=== PATIENT | male | born 1935 | race Caucasian/White ===

== ENCOUNTER → 2021-06-16 | Outpatient (CLI) | payer MEDICARE, BC, SELFPAY ==
--- NOTE | 2021-06-16 06:13 | CT_ITS ---
INDICATION: MID ABDOMINAL HYPOECHOIC MASS FOUND IN US EXAMINATION: CT ABDOMEN AND PELVIS WITH CONTRAST - CT Abdomen And Pelvis W/ Contrast Injection TECHNIQUE: Helically acquired images were obtained of the abdomen and pelvis following IV contrast. A radiation dose optimization technique was used for this scan. IV Contrast dosage and agent: 100 mL of OMNIPAQUE 300. Oral contrast: None. COMPARISON: None. FINDINGS: LOWER CHEST: Lung bases are clear. No cardiomegaly or pericardial effusion. LIVER: Homogeneous. No focal mass. GALLBLADDER AND BILIARY TREE: No calcified gallstones. No gallbladder distension or wall edema. No intra- or extrahepatic biliary ductal dilation. PANCREAS: No focal cystic or solid mass. SPLEEN: Normal size without focal cystic or solid mass. ADRENAL GLANDS: No nodules. KIDNEYS AND URETERS: Multiple cysts cysts visualized in bilateral kidneys, bilateral parapelvic cysts are visualized, cortical atrophy visualized most prominent in the right kidney. Areas of moderate hydroureter visualized most prominent in the distal ureters. PERITONEUM: No ascites or free air. No other fluid collection. BOWEL: Small type I hiatus hernia is seen. A 2 cm area of low attenuation that could represent a duplication cyst visualized along the second portion of the duodenum. No evidence of acute appendicitis. No stomach or bowel distension. No focal inflammatory change. Abundance of stool in the large bowel. LYMPH NODES: Bilateral inguinal lymph nodes visualized. VESSELS: Atherosclerotic calcifications visualized in the abdominal aorta and pelvic vessels. URINARY BLADDER: Markedly distended urinary bladder with mild irregularity of the wall but no evidence of wall masses. Prominence of the prostatic urethra visualized, increased heterogeneous attenuation of the prostate gland visualized with a focal area of low attenuation visualized along the right lateral aspect of the prostate gland best visualized on axial series 2 image 115. REPRODUCTIVE ORGANS: No pelvic masses. ABDOMINAL WALL: No discrete abdominal or pelvic wall hernia. BONES: No lytic or blastic abnormality. CT/Abdomen/Pelvis WITH Contrast IMPRESSION: Obstructive uropathy with markedly distended urinary bladder and bilateral hydroureter. Prominence of the prostatic urethra is visualized with heterogeneous attenuation of the prostate gland and suggestion of a low-attenuation mass in the prostate gland would recommend urological consultation. Small type I hiatus hernia. 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 Bilateral inguinal lymph nodes seen. Electronically Signed: Trino Alcantar MD at 10:23 EDT ,
[2021-06-16 08:26] LABS: CREATININE FINGERSTICK 1.5 mg/dL (0.70-1.30)
== END | disposition home or self-care (01) ==
PROVIDERS: PCP Nurse Practitioner Family; Referring Provider Nurse Practitioner Family; Visit Provider Nurse Practitioner Family
DX: R19.00 Intra-abdominal and pelvic swelling, mass and lump, unspecified site (principal); E11.9 Type 2 diabetes mellitus without complications; I10 Essential (primary) hypertension
CPT/HCPCS: 74177; Q9967

== ENCOUNTER 2021-09-18 12:07 | Emergency (ER) | payer MEDICARE, BC, SELFPAY ==
[2021-09-18 12:07] VITALS: BP 124/63; PULSE 70; RESP 14; TEMP 36.3; O2SAT 97; BMI 25.0
--- NOTE | 2021-09-18 12:42 | EDS_ITS ---
HPI History of Present Illness Chief Complaint: Complaint Informant: patient Pain Onset: Today Context: Gradual Onset Timing: Continuous Worsened by: Nothing Relieved by: Nothing Urinary Symptoms Genitourinary Symptoms: Urgency, Frequency, Retention, Burning, Dysuria and Hematuria Narrative Narrative: Patient presents with urinary retention that began today. Patient states he has been only able to urinate very small amounts today. Patient admits to urinary frequency. Patient admits to urgency. Patient states he did notice some blood with urination. Patient also admits to some burning with urination. Patient denies any fevers or chills. Patient states nothing makes it better nothing makes it worse. Patient denies any nausea or vomiting. Patient denies any back pain. Patient denies any flank pain. PFSH PFS Medical History (Updated 09/18/21 @ 14:[address] Kobe Lerma DO) Coronary artery disease Psoriasis Allergy/AdvReac Type Severity Reaction Status Date / Time prednisone Allergy Swelling Verified 09/18/21 12:09 Surgical History (Updated 09/18/21 @ 12:[address] Kobe Lerma DO) Hx of heart artery stent Social History Smoking Status: Unknown if ever smoked ROS ROS ED Constitutional Constitutional ED: Denies chills or fever(s) Eyes Eyes: Denies blurry vision or change in vision ENT ENT ED: Reports rhinorrhea; Denies sore throat Cardiovascular Cardiovascular: Denies chest pain or palpitations Respiratory/Chest Respiratory/Chest: Denies cough or dyspnea Gastrointestinal Gastrointestinal: Denies nausea or vomiting Genitourinary Genitourinary ED: Reports dysuria, hematuria and urinary frequency Musculoskeletal Musculoskeletal: Denies back pain or neck pain Integumentary Reports rash; Denies abscess Neurologic Neurologic: Denies headache(s) or weakness Allergic/Immunologic Allergic/Immunologic ED: Denies mouth swelling or urticaria EXAM Physical Exam Const Vital Signs: 09/18/21 12:07 Temperature 97.3 F L Temperature Source Temporal Pulse Rate 70 Respiratory Rate 14 Blood Pressure 124/63 H Blood Pressure Mean 83 Pulse Ox 97 Oxygen Delivery Method Room Air Positive well nourished and well developed General Appearance ED: well developed and NAD HEENT Reports moist mucous membranes Neck supple and no JVD Resp normal respiratory effort and clear to auscultation bilaterally Cardio regular rate, regular rhythm and no murmurs GI normal to inspection, nondistended, normoactive bowel sounds GI Narrative: The bladder is distended Palpation: soft and tender suprapubic; Negative for guarding no CVA tenderness Bladder / Kidney Exam: No CVA tenderness Extremity normal to inspection General Extremety ED: Negative for edema or tenderness General Extremity: Negative for edema Neuro oriented x3, CN's II-XII intact bilaterally and no sensory deficits noted Sensorium / Orientation: alert Motor Exam: strength 5/5 throughout Psych mental status grossly normal Skin no rashes or lesions noted MDM MDM MDM Narrative Medical decision making narrative: Black catheter was placed. There is red turbid urine. Occult blood was 250. There were greater than 100 red blood cells and greater than 100 white blood cells. Urine culture was ordered. Patient was given a dose of Levaquin here. Patient was given a prescription for Levaquin. Patient was also given a prescription for [place]. Patient was referred to follow-up with Dr. Stark in 3 to 5 days. Patient understood and was agreeable with the plan. All questions were answered. Lab Data Labs: Laboratory Results - last 24 hr 09/18/21 13:02 Urine Color Red Urine Clarity Turbid Urine pH 7.0 Ur Specific [place] 1.010 Urine Protein 500 H Urine Glucose (UA) Normal Urine Ketones Negative Urine Occult Blood 250 H Urine Nitrite Negative Urine Bilirubin Negative Urine Urobilinogen Normal Ur Leukocyte Esterase Negative Urine RBC > 100 SEEN Urine WBC >100 SEEN Ur Squamous Epith Cells 0 SEEN Urine Bacteria 0 SEEN Urine Mucus 0 SEEN Discharge Plan Triage Chief Complaint: Complaint ED Provider: Kobe Lerma Dx/Rx/DC Orders Clinical Impression: Acute urinary retention, Hematuria, Cystitis Instructions: ED Black Catheter, Care, ED Urinary Retention, Male, ED Bladder Infection, Male (Adult) Primary Care Provider: Dennis Chu NP Referrals: Robb Stark MD [STAFF PHYSICIAN] - 3-5 Days Dennis Chu NP, [employer] [Primary Care Provider] - 3-5 Days Disposition Disposition: Home, Self Care
[2021-09-18] MEDS: Lidocaine Jelly 2% 20 ML Syringe (URO-JET) 1 APPLIC TOPICAL (12:49)
[2021-09-18 13:08] LABS: Bacteria 0 SEEN /hpf (None Seen); Mucous, Urine 0 SEEN /hpf (<or=2+); Squamous Epithelial Cells - UA 0 SEEN /hpf (0-5)
[2021-09-18 13:09] LABS: Color, Urine Red (Yellow); Glucose, Dipstick Normal (Normal); Ketone-Dipstick Negative (Negative); Leukocyte Esterase-Dipstick Negative /ul (Negative); Nitrite-Dipstick Negative (Negative); Occult Blood-Urine 250 /ul (Negative); Protein-Dipstick 500 mg/dl (Negative); Urine Bilirubin Dipstick Negative (Negative); Urine Clarity Turbid (Clear); Urine Urobilinogen Normal (Normal)
[2021-09-18 13:16] LABS: Red Blood Cells-Urine > 100 SEEN /hpf (0-5); White Blood Cells >100 SEEN /hpf (0-5)
[2021-09-18] MEDS: HYDROcodone Bitartrate/Apap 5/325 Tablet PO (13:59)
[2021-09-18] MEDS: levoFLOXacin 750 MG Tablet PO (14:40)
[2021-09-18 14:52] VITALS: BP 149/61; PULSE 69; O2SAT 98
== END 2021-09-18 15:20 | disposition home or self-care (01) ==
PROVIDERS: Emergency Provider Emergency Medicine; PCP Nurse Practitioner Family; Visit Provider Emergency Medicine
DX: N30.91 Cystitis, unspecified with hematuria (principal); R33.9 Retention of urine, unspecified; I25.10 Atherosclerotic heart disease of native coronary artery without angina pectoris
CPT/HCPCS: 51702; 81001; 87077; 87086; 87088; 87186; 99283